=== PATIENT | female | born 1980 | race Caucasian/White ===

== ENCOUNTER 2020-08-05 10:59 | Observation (INO) | payer MEDICAID, SELFPAY ==
[2020-08-05 11:10] VITALS: BP 149/85; PULSE 91; RESP 22; TEMP 36; O2SAT 99
[2020-08-05 11:33] LABS: Bilirubin Negative (Negative); Blood Trace-intact (Negative); Clarity Clear (Clear); Glucose Negative (Negative); Ketones Negative (Negative); Leukocyte Esterase Negative (Negative); Nitrite Negative (Negative); Urobilinogen 0.2 EU/dL (Up TO 0.2)
[2020-08-05 11:41] LABS: Abs Immature Grans 0.06 10^3/uL (0.0-0.06); Absolute Basophil Count 0.03 10^3/uL (0.0-0.2); Absolute Eosinophil Count 0.06 10^3/uL (0.0-0.7); Absolute Lymphocyte Count 1.19 10^3/uL (1.2-3.4); Absolute Neutrophil Count 6.67 10^3/uL (1.2-6.7); Basophils % 0.3; Eosinophils % 0.7; HCT 41.8 % (36.0-46.0); HGB 13.6 g/dL (11.2-15.7); Immature Grans % 0.7; Lymphocytes % 13.7; MCH 28.8 pg (27.0-33.0); MCHC 32.5 % (32.0-36.0); MCV 88.6 fL (80-95); MPV 9.6 fL (8.0-11.0); Neutrophils % 76.6; Nucleated RBC 0 %; Platelet Count 347 10^3/uL (130-400); RBC 4.72 10^6/uL (3.93-5.22); RDW 11.9 % (11.7-14.6); RDW-SD 38.6 fL; WBC 8.71 10^3/uL (4.4-10.8)
[2020-08-05 11:42] LABS: RBC 0-2 HPF (0-2); WBC Negative HPF (0-5)
[2020-08-05 11:43] LABS: Bacteria Few HPF (Negative); C & S Indicated? No/Sq. Contamination; Casts Negative LPF (Negative); Crystals Negative HPF (Negative); Epithelial Cells Moderate HPF (Negative); Mucus Negative (Negative)
[2020-08-05 11:47] LABS: *AMPHETAMINES SCREEN URINE Negative (Negative); *BARBITURATES SCREEN URINE Negative (Negative); *BENZODIAZEPINES SCREEN URINE Negative (Negative); Cannabinoids THC Negative (Negative); Cocaine Screen,Urine Negative (Negative); METHADONE URINE SCREEN Negative (Negative); OPIATES URINE SCREEN Negative (Negative)
[2020-08-05 11:51] LABS: Tricyclic Antidepressants Negative (Negative)
--- NOTE | 2020-08-05 11:51 | CMSP_ITS ---
- If Service Date Differs Date of service: 08/05/20 Time of Service: 11:52 Care Management Safety Plan Status: Voluntary VOLUNTARY FOR INPATIENT PSYCHIATRIC STABILIZATION. Patient is appropriate in all interactions since arriving at [facility]; Pt has demonstrated appropriate coping and communication skills, has articulated his or her needs and concerns and is fully engaged during staff interactions. Lisa reports ongoing unmanageable panic episodes that have been increasing in frequency. She shares that her PCP has been attempting to adjust medications to support her, but the medications just make her sleep. She had an panic attack on the way to a scheduled appointment today and came directly to the [facility] ED, though she resides in the [place] area. Ewa RN reports Lisa has been completely appropriate in interaction and she has permitted her to keep her cellphone to support communication with her family; primarily fiance and sister are noted as support people at this time. Safety plan has been established with patient, and care team, to adhere to patient goals, identify restrictions based on behavioral status, address nutrition, and determine allowed personal belongings, tools for hygiene and personal care. Determine level of activity including ambulation, level of supervision, visitors, and determine privileges based on behaviors and level of engagement by pt. SAFETY PLAN: 1. Will remain on suicide precautions. In Paper Clothes 2. Will remain in room under direct supervision of one-on-one staff at all times provided by C[employer]; NIRALI, TAPING MACHINE OPERATOR quarantine inspector. 3. May have paper cups, plates, finger foods as well as a cardboard spoon with which to eat meals. 4. Follow [facility] Management of the Admitted Behavioral Health Patient policy. 5. Comfort bath system as well as shower permitted at RN discretion. 6. Personal belongings limited to patient's own cell phone at this time. 7. Visitors-No visitors at this time 8. Activities: permitted soft activity cart items at RN discretion. Permitted television and remote, as well as music tablet. 9. Bathroom privileges with escort in ED, available in room without limitation in M/S transition room. 10. Phone: permitted own cell phone at this time; per RN discretion. 11. Due to VOLUNTARY status, if patient wishes to leave [facility], staff will contact [facility] Crisis Screener ([phone]) and On-Call Drilling Superintendent ([phone]) as soon as possible. In the event of elopement, notify [facility] Police ([phone]). Patient is currently voluntarily at [facility] and seeking inpatient admission when a bed becomes available. [facility] Frontline Coil Spring Assembler will continue seeking placement. Please contact the Flight Dispatcher Drilling Superintendent ([phone]) and [facility] Coil Spring Assembler ([phone]) for any needed changes in the Safety Plan. Safety plan has been provided to interdepartmental care team.
[2020-08-05 12:02] LABS: ALT 26 U/L (14-59); AST 20 U/L (15-37); Albumin 3.9 g/dL (3.4-5.0); Alkaline Phosphatase 53 U/L (46-116); Anion Gap 9.9 mmol/L (3-11); BUN 12 mg/dL (7-18); Bilirubin, Total 0.4 mg/dL (0.2-1.0); CO2 28.1 mmol/L (21.0-32.0); CREATININE 0.9 mg/dL (0.55-1.02); Chloride 104 mmol/L (98-107); Glucose 96 mg/dL (74-106); Potassium 3.8 mmol/L (3.5-5.1); Sodium 142 mmol/L (136-145); TSH 1.07 uIU/mL (0.36-3.74); Total Protein 7.9 g/dL (6.4-8.2)
[2020-08-05 12:13] LABS: ETHANOL BLOOD < 3.0 mg/dL (<3)
--- NOTE | 2020-08-05 12:45 | PDOC.MHCN ---
Date of service: 08/05/20 Time of Service: 12:54 Mental Health Crisis Note Presenting Issue How did you arrive at the ED and why did you come: Patient experienced a panic attack on the way to an appointment and brought herself in to the ED. She is depressed, anxious and feeling suidical. She is worried that she will imulsively hurt herself and is feeling out of control. Precipitating Factors Patient experienced an sudden upsurge of panic last Thursday. She has been undergoing medication change and is feeling out of control. She is having suicidal thoughts and is depressed and abxious. She wishes to seek inpatient care for help in stabilizing her symptoms. Disposition BEHAVIOR: She is cooperative and appropriate. EYE CONTACT: This is a zoom interview and she keeps eye contact on the screen MOOD: her mood is depressed and anxious AFFECT: She is crying APPETITE: Noted that she hasn't eaten much since last Thursday. SLEEP(trouble falling/staying asleep: Unable to fall asleep easily or stay asleep. Plan Patient kaya remain in hospital at [facility] while placement is sought. The [facility] tobacco cloth reclaimer will call hospitals and oversee faxing of information to the hospitals. Signature Clinician's Name/Title: Eleni Hunter, [facility] Emergency Services Clinician
[2020-08-05] MEDS: Ibuprofen 800 MG TAB PO (13:36)
[2020-08-05] MEDS: LORazepam 1 MG TAB PO (13:36)
[2020-08-05 13:44] LABS: Source Nasal/Nares
--- NOTE | 2020-08-05 13:50 | ED.GENADUL_ITS ---
Discharge Plan Disposition Patient Disposition: [facility] INPATIENT Condition: Serious Discharge Details Chief Complaint: PsychEval Clinical Impression: Suicidal ideation, Depression Primary Care Provider: Kendra Jauregui ED Provider: Remi Ron Home Meds and New Rx's Prescriptions: No Action paroxetine HCl [Paxil] 10 mg Tablet 10 mg PO DAILY RF: 0 lorazepam 0.5 mg Tablet 0.5 mg PO BID PRNRF: 0 Medical Decision Making 39-year-old female presenting for ongoing anxiety and depression now with increasing depression, suicidal and homicidal thoughts. There have been multiple medication changes over the past couple of months. She denies any medical complaints at this time. Denies recent illness or trauma. She did not do anything today to harm herself. I have ordered a CPSO, mental health evaluation, care plan, and will obtain screening laboratory values for psychiatric voluntary placement. Laboratory values are unremarkable for obvious emergent process. Mental health evaluation completed by Eleni. Will begin to seek voluntary placement. Patient complains of a mild headache from crying and ongoing anxiety. Given 800 mg p.o. Motrin and 1 g p.o. Ativan I was updated by Eleni that placement will not take place until tomorrow at the earliest. Given that, I will reach out to our hospitalist team to discuss admission. Case discussed with Dr. Street, agreeable to admitting the patient while inpatient voluntary psych placement is found. Lab Data Lab results reviewed: Yes I reviewed the patient's lab results. Labs: Laboratory Tests Range/Units 08/05/20 08/05/20 08/05/20 11:07 11:07 11:36 WBC (4.4-10.8) 10^3/uL RBC (3.93-5.22) 10^6/uL Hgb (11.2-15.7) g/dL Hct (36.0-46.0) % MCV (80-95) fL MCH (27.0-33.0) pg MCHC (32.0-36.0) % RDW (11.7-14.6) % Plt Count (130-400) 10^3/uL MPV (8.0-11.0) fL Immature Gran % Neutrophils % Lymphocytes % Monocytes % Eosinophils % Basophils % Nucleated RBC % % Absolute Neutrophils (1.2-6.7) 10^3/uL Absolute Lymphocytes (1.2-3.4) 10^3/uL Absolute Monocytes (0.1-0.8) 10^3/uL Absolute Eosinophils (0.0-0.7) 10^3/uL Absolute Basophils (0.0-0.2) 10^3/uL Sodium (136-145) mmol/L 142 Potassium (3.5-5.1) mmol/L 3.8 Chloride (98-107) mmol/L 104 Carbon Dioxide (21.0-32.0) mmol/L 28.1 Anion Gap (3-11) mmol/L 9.9 BUN (7-18) mg/dL 12 Creatinine (0.55-1.02) mg/dL 0.9 Estimated GFR/1.73 m2 (mL/min/1.73m2) >= 60.00 Glucose (74-106) mg/dL 96 Calcium (8.5-10.1) mg/dL 9.0 Total Bilirubin (0.2-1.0) mg/dL 0.4 AST (15-37) U/L 20 ALT (14-59) U/L 26 Alkaline Phosphatase (46-116) U/L 53 Total Protein (6.4-8.2) g/dL 7.9 Albumin (3.4-5.0) g/dL 3.9 TSH (0.36-3.74) uIU/mL 1.07 Urine Color (Yellow) Yellow Urine Clarity (Clear) Clear Urine pH (5-8) 6.0 Ur Specific [place] (1.005-1.025) 1.010 Urine Protein (Negative) mg/dL Negative Urine Ketones (Negative) mg/dL Negative Urine Blood (Negative) Trace-intact H Urine Nitrite (Negative) Negative Urine Bilirubin (Negative) Negative Urine Urobilinogen (Up TO 0.2) EU/dL 0.2 Ur Leukocyte Esterase (Negative) Negative Urine RBC (0-2) HPF 0-2 Urine WBC (0-5) HPF Negative Ur Epithelial Cells (Negative) HPF Moderate Urine Crystals (Negative) HPF Negative Urine Bacteria (Negative) HPF Few Urine Casts (Negative) LPF Negative Urine Mucus (Negative) Negative Ur Culture Indicated? No/sq. contamination Urine Glucose (Negative) mg/dL Negative Urine Opiates Screen (Negative) Negative Urine Methadone Screen (Negative) Negative Ur Barbiturates Screen (Negative) Negative Ur Tricyclics Screen (Negative) Negative Ur Amphetamines Screen (Negative) Negative U Benzodiazepines Scrn (Negative) Negative Urine Cocaine Screen (Negative) Negative Ur THC Screen (Negative) Negative Ethyl Alcohol (<3) mg/dL < 3.0 COVID-19 Source Range/Units 08/05/20 08/05/20 11:36 13:40 WBC (4.4-10.8) 10^3/uL 8.71 RBC (3.93-5.22) 10^6/uL 4.72 Hgb (11.2-15.7) g/dL 13.6 Hct (36.0-46.0) % 41.8 MCV (80-95) fL 88.6 MCH (27.0-33.0) pg 28.8 MCHC (32.0-36.0) % 32.5 RDW (11.7-14.6) % 11.9 Plt Count (130-400) 10^3/uL 347 MPV (8.0-11.0) fL 9.6 Immature Gran % 0.7 Neutrophils % 76.6 Lymphocytes % 13.7 Monocytes % 8.0 Eosinophils % 0.7 Basophils % 0.3 Nucleated RBC % % 0 Absolute Neutrophils (1.2-6.7) 10^3/uL 6.67 Absolute Lymphocytes (1.2-3.4) 10^3/uL 1.19 L Absolute Monocytes (0.1-0.8) 10^3/uL 0.70 Absolute Eosinophils (0.0-0.7) 10^3/uL 0.06 Absolute Basophils (0.0-0.2) 10^3/uL 0.03 Sodium (136-145) mmol/L Potassium (3.5-5.1) mmol/L Chloride (98-107) mmol/L Carbon Dioxide (21.0-32.0) mmol/L Anion Gap (3-11) mmol/L BUN (7-18) mg/dL Creatinine (0.55-1.02) mg/dL Estimated GFR/1.73 m2 (mL/min/1.73m2) Glucose (74-106) mg/dL Calcium (8.5-10.1) mg/dL Total Bilirubin (0.2-1.0) mg/dL AST (15-37) U/L ALT (14-59) U/L Alkaline Phosphatase (46-116) U/L Total Protein (6.4-8.2) g/dL Albumin (3.4-5.0) g/dL TSH (0.36-3.74) uIU/mL Urine Color (Yellow) Urine Clarity (Clear) Urine pH (5-8) Ur Specific [place] (1.005-1.025) Urine Protein (Negative) mg/dL Urine Ketones (Negative) mg/dL Urine Blood (Negative) Urine Nitrite (Negative) Urine Bilirubin (Negative) Urine Urobilinogen (Up TO 0.2) EU/dL Ur Leukocyte Esterase (Negative) Urine RBC (0-2) HPF Urine WBC (0-5) HPF Ur Epithelial Cells (Negative) HPF Urine Crystals (Negative) HPF Urine Bacteria (Negative) HPF Urine Casts (Negative) LPF Urine Mucus (Negative) Ur Culture Indicated? Urine Glucose (Negative) mg/dL Urine Opiates Screen (Negative) Urine Methadone Screen (Negative) Ur Barbiturates Screen (Negative) Ur Tricyclics Screen (Negative) Ur Amphetamines Screen (Negative) U Benzodiazepines Scrn (Negative) Urine Cocaine Screen (Negative) Ur THC Screen (Negative) Ethyl Alcohol (<3) mg/dL COVID-19 Source Nasal/nares HPI General Mode of arrival: ambulatory . Date/Time Provider Initiated Documentation: 08/05/20 11:21 . Limitations to Documentation: no limitations . Information obtained by: patient . HPI Narrative: This is a 39-year-old female, past medical history of anxiety and depression, presenting to the ER today for increasing anxiety and depression now with suicidal ideation. She states that over the past 2 months there have been multiple changes with her medications, recently placed back on Paxil because Paxil worked very well for her previously. She denies any new obvious stressors or triggers in her life. She states that she has thoughts of cutting herself or shooting herself with a gun. She denies doing anything today to harm herself or any previous attempts. She states that she also has a vague thoughts of stabbing someone else, not anyone in particular. She denies recent illness or trauma. No medical concerns or complaints at this time. She has never been hospitalized for psychiatric reasons however today is seeking voluntary placement. Related Data Home Medications Medication Instructions Recorded Confirmed lorazepam 0.5 mg PO BID PRN 08/05/20 08/05/20 paroxetine HCl [Paxil] 10 mg PO DAILY 08/05/20 08/05/20 Allergies Allergy/AdvReac Type Severity Reaction Status Date / Time Sulfa (Sulfonamide Allergy Skin Rash Unverified 08/05/20 11:14 Antibiotics) General Stated Complaint: PsychEval PUNEET: 2 Review of Systems Constitutional Constitutional: Denies fatigue, Denies fever(s) and Denies headache(s) ENT Ears, Nose, Mouth, and Throat: Denies headache(s) Cardiovascular Cardiovascular: Denies chest pain and Denies dyspnea Respiratory Respiratory: Denies cough and Denies dyspnea Gastrointestinal Gastrointestinal: Denies abdominal pain, Denies nausea and Denies vomiting Genitourinary Genitourinary: Denies dysuria Musculoskeletal Musculoskeletal: Denies back pain Integumentary/Breasts Skin/Breast: Denies rash Neurologic Neurologic: Denies headache(s) Psychiatric Psychiatric: Reports anxiety, Reports depression, Reports homicidal ideation and Reports suicidal ideation Endocrine Endocrine: Denies fatigue [facility] Medical History Anxiety Depression Surgical History Status post left foot surgery Social History Smoking/Tobacco Use Status: Never Smoking risk assessment performed?: Yes Alcohol Intake: current Alcohol Intake frequency: a few times a month Drug use: Occasionally Substance use type: marijuana Exam Const General: cooperative, healthy appearing, comfortable, no acute distress and anxious (Tearful) Orientation: alert, awake and oriented x3 HENWV Head: normal to inspection, normocephalic and atraumatic Eyes General: appearance normal, both eyes and all related structures Conjunctivae: conjunctivae normal Neck Neck: normal visual inspection, full ROM, trachea midline and supple Resp Effort & Inspection: normal respiratory effort and able to speak in complete sentences Auscultation: clear to auscultation bilaterally Cardio Rate: regular rate Rhythm: regular rhythm GI Palpation: soft and nontender Back/Spine/Pelvis Back: No back tenderness Skin General skin exam: no rashes or lesions noted Neuro General: patient alert, patient awake, patient oriented x3, moves all extremities and no focal motor deficits Cognition: normal cognition Speech: speech normal Gait: normal gait Motor: muscle tone normal throughout Sensory Exam: no sensory deficits noted Extrem General: normal to inspection and full ROM Psych Appearance: grossly normal Mental Status: mental status grossly normal Speech and Movement: speech and movement normal Mood: anxious mood Affect: sad Attitude: cooperative Thought Process: normal Thought Content: suicidality Insight: insight good Judgment: judgment good Course Vital Signs Vital signs: Vital Signs Temperature 36 C L 08/05/20 11:10 Pulse 91 H 08/05/20 11:10 Respiratory Rate 22 08/05/20 11:10 Blood Pressure 149/85 H 08/05/20 11:10 Pulse Oximetry 99 08/05/20 11:10 Temperature 36 C L 08/05/20 11:10 Temperature Source Skin 08/05/20 11:10 Pulse 91 H 08/05/20 11:10 Respiratory Rate 22 08/05/20 11:10 Respiratory Effort Non-Labored 08/05/20 11:18 Blood Pressure 149/85 H 08/05/20 11:10 Blood Pressure Position Sitting 08/05/20 11:10 Pulse Oximetry 99 08/05/20 11:10 Oxygen Delivery Method Room Air 08/05/20 11:10 Oxygen Flow Rate 0 08/05/20 11:10 Pain Level 0 08/05/20 11:10 Lab/Test Results Lab/Test Results: Laboratory Tests Range/Units 08/05/20 08/05/20 08/05/20 11:07 11:07 11:36 WBC (4.4-10.8) 10^3/uL RBC (3.93-5.22) 10^6/uL Hgb (11.2-15.7) g/dL Hct (36.0-46.0) % MCV (80-95) fL MCH (27.0-33.0) pg MCHC (32.0-36.0) % RDW (11.7-14.6) % Plt Count (130-400) 10^3/uL MPV (8.0-11.0) fL Immature Gran % Neutrophils % Lymphocytes % Monocytes % Eosinophils % Basophils % Nucleated RBC % % Absolute Neutrophils (1.2-6.7) 10^3/uL Absolute Lymphocytes (1.2-3.4) 10^3/uL Absolute Monocytes (0.1-0.8) 10^3/uL Absolute Eosinophils (0.0-0.7) 10^3/uL Absolute Basophils (0.0-0.2) 10^3/uL Sodium (136-145) mmol/L 142 Potassium (3.5-5.1) mmol/L 3.8 Chloride (98-107) mmol/L 104 Carbon Dioxide (21.0-32.0) mmol/L 28.1 Anion Gap (3-11) mmol/L 9.9 BUN (7-18) mg/dL 12 Creatinine (0.55-1.02) mg/dL 0.9 Estimated GFR/1.73 m2 (mL/min/1.73m2) >= 60.00 Glucose (74-106) mg/dL 96 Calcium (8.5-10.1) mg/dL 9.0 Total Bilirubin (0.2-1.0) mg/dL 0.4 AST (15-37) U/L 20 ALT (14-59) U/L 26 Alkaline Phosphatase (46-116) U/L 53 Total Protein (6.4-8.2) g/dL 7.9 Albumin (3.4-5.0) g/dL 3.9 TSH (0.36-3.74) uIU/mL 1.07 Urine Color (Yellow) Yellow Urine Clarity (Clear) Clear Urine pH (5-8) 6.0 Ur Specific [place] (1.005-1.025) 1.010 Urine Protein (Negative) mg/dL Negative Urine Ketones (Negative) mg/dL Negative Urine Blood (Negative) Trace-intact H Urine Nitrite (Negative) Negative Urine Bilirubin (Negative) Negative Urine Urobilinogen (Up TO 0.2) EU/dL 0.2 Ur Leukocyte Esterase (Negative) Negative Urine RBC (0-2) HPF 0-2 Urine WBC (0-5) HPF Negative Ur Epithelial Cells (Negative) HPF Moderate Urine Crystals (Negative) HPF Negative Urine Bacteria (Negative) HPF Few Urine Casts (Negative) LPF Negative Urine Mucus (Negative) Negative Ur Culture Indicated? No/sq. contamination Urine Glucose (Negative) mg/dL Negative Urine Opiates Screen (Negative) Negative Urine Methadone Screen (Negative) Negative Ur Barbiturates Screen (Negative) Negative Ur Tricyclics Screen (Negative) Negative Ur Amphetamines Screen (Negative) Negative U Benzodiazepines Scrn (Negative) Negative Urine Cocaine Screen (Negative) Negative Ur THC Screen (Negative) Negative Ethyl Alcohol (<3) mg/dL < 3.0 COVID-19 Source Range/Units 08/05/20 08/05/20 11:36 13:40 WBC (4.4-10.8) 10^3/uL 8.71 RBC (3.93-5.22) 10^6/uL 4.72 Hgb (11.2-15.7) g/dL 13.6 Hct (36.0-46.0) % 41.8 MCV (80-95) fL 88.6 MCH (27.0-33.0) pg 28.8 MCHC (32.0-36.0) % 32.5 RDW (11.7-14.6) % 11.9 Plt Count (130-400) 10^3/uL 347 MPV (8.0-11.0) fL 9.6 Immature Gran % 0.7 Neutrophils % 76.6 Lymphocytes % 13.7 Monocytes % 8.0 Eosinophils % 0.7 Basophils % 0.3 Nucleated RBC % % 0 Absolute Neutrophils (1.2-6.7) 10^3/uL 6.67 Absolute Lymphocytes (1.2-3.4) 10^3/uL 1.19 L Absolute Monocytes (0.1-0.8) 10^3/uL 0.70 Absolute Eosinophils (0.0-0.7) 10^3/uL 0.06 Absolute Basophils (0.0-0.2) 10^3/uL 0.03 Sodium (136-145) mmol/L Potassium (3.5-5.1) mmol/L Chloride (98-107) mmol/L Carbon Dioxide (21.0-32.0) mmol/L Anion Gap (3-11) mmol/L BUN (7-18) mg/dL Creatinine (0.55-1.02) mg/dL Estimated GFR/1.73 m2 (mL/min/1.73m2) Glucose (74-106) mg/dL Calcium (8.5-10.1) mg/dL Total Bilirubin (0.2-1.0) mg/dL AST (15-37) U/L ALT (14-59) U/L Alkaline Phosphatase (46-116) U/L Total Protein (6.4-8.2) g/dL Albumin (3.4-5.0) g/dL TSH (0.36-3.74) uIU/mL Urine Color (Yellow) Urine Clarity (Clear) Urine pH (5-8) Ur Specific [place] (1.005-1.025) Urine Protein (Negative) mg/dL Urine Ketones (Negative) mg/dL Urine Blood (Negative) Urine Nitrite (Negative) Urine Bilirubin (Negative) Urine Urobilinogen (Up TO 0.2) EU/dL Ur Leukocyte Esterase (Negative) Urine RBC (0-2) HPF Urine WBC (0-5) HPF Ur Epithelial Cells (Negative) HPF Urine Crystals (Negative) HPF Urine Bacteria (Negative) HPF Urine Casts (Negative) LPF Urine Mucus (Negative) Ur Culture Indicated? Urine Glucose (Negative) mg/dL Urine Opiates Screen (Negative) Urine Methadone Screen (Negative) Ur Barbiturates Screen (Negative) Ur Tricyclics Screen (Negative) Ur Amphetamines Screen (Negative) U Benzodiazepines Scrn (Negative) Urine Cocaine Screen (Negative) Ur THC Screen (Negative) Ethyl Alcohol (<3) mg/dL COVID-19 Source Nasal/nares POC- Test(urine) Negative
[2020-08-05 15:37] VITALS: BP 114/80; PULSE 92; RESP 18; TEMP 36.8; O2SAT 98
--- NOTE | 2020-08-05 15:46 | W.PM.HP.N ---
Date of service: 08/05/20 Time of Service: 15:00 Assessment and Plan Assessment and plan (1) Suicidal ideation: Start date: 08/05/20 Start time: 16:21 Status: Acute Assessment and plan: Due to increased depression multiple med changes likely contributing factor. She has had active plans but no actions. Will continue Paxil Valium 2 mg BID sched with 5 mg PRN CPSO 1:1 Medically cleared. (2) Depression: Start date: 08/05/20 Start time: 16:23 Status: Chronic Assessment and plan: as above both MH and CM working on Bed placement above case discussed with Dr. Street History of Present Illness History of Present Illness Chief Complaint: Psych Narrative: 39 y.o female with PMH of anxiety and depression presents to [facility] ED for worsening anxiety and depression. Over the last couple of months patient express multiple medication changes being taken off her paxil especially since then having worsening anxiety and depression. She is having thoughts of harming herself wanting to slight her wrist and shot herself. evaluated her and deemed her voluntary. Labs in ED unremarkable. She has been asked to be admitted for further management until bed placement. She is being admitted to a transition unit. Review of Systems All systems reviewed & are unremarkable except as noted in HPI and below PFSH Medical History Anxiety Depression Surgical History Status post left foot surgery Social History Smoking/Tobacco Use Status: Never Smoking risk assessment performed?: Yes Alcohol Intake: current Alcohol Intake frequency: a few times a month Drug use: Occasionally Substance use type: marijuana Meds Home Medications and Allergies Allergies Allergy/AdvReac Type Severity Reaction Status Date / Time Sulfa (Sulfonamide Allergy Skin Rash Unverified 08/05/20 11:14 Antibiotics) Home Medications Medication Instructions Recorded Confirmed Type lorazepam 0.5 mg PO BID PRN 08/05/20 08/05/20 History paroxetine HCl [Paxil] 10 mg PO DAILY 08/05/20 08/05/20 History Exam Narrative Exam Narrative: Cont: middle aged anxious female AAOx 3 with thoughts of SI General: cooperative, healthy appearing, comfortable, no acute distress Eyes:PERRLA, EOMI Neck: normal visual inspection, full ROM, trachea midline and supple Resp: LSC to all tapia, no wheezing, rhonichi Cardio: RRR without ectopic beats GI: soft non tender bsx4 Palpation: soft and nontender Back: No back tenderness Skin: no rashes or leasions Extrem: no clubbing cyanosis, edema Psych Appearance: grossly normal Mental Status: mental status grossly normal Speech and Movement: speech and movement normal Mood: anxious mood Affect: sad Attitude: cooperative Thought Content: suicidality Insight: insight poor Judgment: judgment poor Results Labs Result diagrams: 08/05/20 11:36 08/05/20 11:36 Labs: Laboratory Results - last 24 hr 08/05/20 08/05/20 08/05/20 11:07 11:07 11:36 WBC RBC Hgb Hct MCV MCH MCHC RDW Plt Count MPV Immature Gran % Neutrophils % Lymphocytes % Monocytes % Eosinophils % Basophils % Nucleated RBC % Absolute Neutrophils Absolute Lymphocytes Absolute Monocytes Absolute Eosinophils Absolute Basophils Sodium 142 Potassium 3.8 Chloride 104 Carbon Dioxide 28.1 Anion Gap 9.9 BUN 12 Creatinine 0.9 Estimated GFR/1.73 m2 >= 60.00 Glucose 96 Calcium 9.0 Total Bilirubin 0.4 AST 20 ALT 26 Alkaline Phosphatase 53 Total Protein 7.9 Albumin 3.9 TSH 1.07 Urine Color Yellow Urine Clarity Clear Urine pH 6.0 Ur Specific [place] 1.010 Urine Protein Negative Urine Ketones Negative Urine Blood Trace-intact H Urine Nitrite Negative Urine Bilirubin Negative Urine Urobilinogen 0.2 Ur Leukocyte Esterase Negative Urine RBC 0-2 Urine WBC Negative Ur Epithelial Cells Moderate Urine Crystals Negative Urine Bacteria Few Urine Casts Negative Urine Mucus Negative Ur Culture Indicated? No/sq. contamination Urine Glucose Negative Urine Opiates Screen Negative Urine Methadone Screen Negative Ur Barbiturates Screen Negative Ur Tricyclics Screen Negative Ur Amphetamines Screen Negative U Benzodiazepines Scrn Negative Urine Cocaine Screen Negative Ur THC Screen Negative Ethyl Alcohol < 3.0 COVID-19 Source 08/05/20 08/05/20 11:36 13:40 WBC 8.71 RBC 4.72 Hgb 13.6 Hct 41.8 MCV 88.6 MCH 28.8 MCHC 32.5 RDW 11.9 Plt Count 347 MPV 9.6 Immature Gran % 0.7 Neutrophils % 76.6 Lymphocytes % 13.7 Monocytes % 8.0 Eosinophils % 0.7 Basophils % 0.3 Nucleated RBC % 0 Absolute Neutrophils 6.67 Absolute Lymphocytes 1.19 L Absolute Monocytes 0.70 Absolute Eosinophils 0.06 Absolute Basophils 0.03 Sodium Potassium Chloride Carbon Dioxide Anion Gap BUN Creatinine Estimated GFR/1.73 m2 Glucose Calcium Total Bilirubin AST ALT Alkaline Phosphatase Total Protein Albumin TSH Urine Color Urine Clarity Urine pH Ur Specific [place] Urine Protein Urine Ketones Urine Blood Urine Nitrite Urine Bilirubin Urine Urobilinogen Ur Leukocyte Esterase Urine RBC Urine WBC Ur Epithelial Cells Urine Crystals Urine Bacteria Urine Casts Urine Mucus Ur Culture Indicated? Urine Glucose Urine Opiates Screen Urine Methadone Screen Ur Barbiturates Screen Ur Tricyclics Screen Ur Amphetamines Screen U Benzodiazepines Scrn Urine Cocaine Screen Ur THC Screen Ethyl Alcohol COVID-19 Source Nasal/nares Last Vital Signs Temp 36.8 C 08/05/20 15:37 Pulse 92 H 08/05/20 15:37 Resp 18 08/05/20 15:37 BP 114/80 08/05/20 15:37 Pulse Ox 98 08/05/20 15:37 COVID-19 Screening Have you, or household traveled for leisure in last 14 days?: No Had IN PERSON contact w/suspected or confirmed C-19 person: No
[2020-08-05 16:30] LABS: COVID-19 PCR Negative (Negative)
--- NOTE | 2020-08-05 19:16 | W.PM.DS.N ---
Date of service: 08/05/20 Time of Service: 19:25 DS: Diagnosis Discharge Diagnosis (1) Suicidal ideation: Status: Acute (2) Depression: Status: Chronic Discharge Plan Disposition Patient Disposition: [facility] Condition: Serious Discharge Details Admit Date/Time: 08/05/20 14:34 Admit Provider: Kaiser Street Attending Provider: Kaiser Street Primary Care Provider: Kendra Jauregui Hospital Course Hospital Course: Patient admitted this afternoon with suicidal ideation and worsening depression felt to be due at least in part to coming of Paxil. This was to be resumed on the evening of admission, and she was admitted voluntarily pending transfer to psychiatric facility. Shortly after admission we were notified that patient had been accepted at [facility] under care of a Dr. Thompson, with transfer planned for the morning of the . Home Meds and New Rx's Prescriptions: No Action paroxetine HCl [Paxil] 10 mg Tablet 10 mg PO DAILY RF: 0 lorazepam 0.5 mg Tablet 0.5 mg PO BID PRNRF: 0 Discharge Instructions Activity:: Activity as Tolerated Equipment/Supplies:: No Equipment Needed Diet:: As Tolerated DS: Summary Time Spent with Patient providing and/or coordinating discharge services: Less than 30 minutes DS: Data Vitals/I&O Vitals and I&O: Vital Signs Temperature 36.8 C 08/05/20 15:37 Temperature Source Temporal Artery Scan 08/05/20 15:37 Pulse 92 H 08/05/20 15:37 Pulse Rhythm Regular 08/05/20 17:23 Respiratory Rate 18 08/05/20 15:37 Respiratory Effort Non-Labored 08/05/20 17:23 Respiratory Depth Normal 08/05/20 17:23 Respiratory Pattern Normal 08/05/20 17:23 Blood Pressure 114/80 08/05/20 15:37 Blood Pressure Position Sitting 08/05/20 11:10 Pulse Oximetry 98 08/05/20 15:37 Oxygen Delivery Method Room Air 08/05/20 15:37 Oxygen Flow Rate 0 08/05/20 15:37 Pain Level 0 08/05/20 15:37 Intake & Output 08/04/20 08/05/20 08/05/20 23:59 11:59 23:59 Intake Total 230 / 230 Balance 230 / 230 Weight 77.111 kg Intake: Oral 230 / 230 Data Completed and Pending Labs on day of discharge: Labs from last 24 hours 08/05/20 08/05/20 08/05/20 13:40 11:36 11:36 WBC 8.71 RBC 4.72 Hgb 13.6 Hct 41.8 MCV 88.6 MCH 28.8 MCHC 32.5 RDW 11.9 Plt Count 347 MPV 9.6 Immature Gran % 0.7 Neutrophils % 76.6 Lymphocytes % 13.7 Monocytes % 8.0 Eosinophils % 0.7 Basophils % 0.3 Nucleated RBC % 0 Absolute Neutrophils 6.67 Absolute Lymphocytes 1.19 L Absolute Monocytes 0.70 Absolute Eosinophils 0.06 Absolute Basophils 0.03 Sodium 142 Potassium 3.8 Chloride 104 Carbon Dioxide 28.1 Anion Gap 9.9 BUN 12 Creatinine 0.9 Estimated GFR/1.73 m2 >= 60.00 Glucose 96 Calcium 9.0 Total Bilirubin 0.4 AST 20 ALT 26 Alkaline Phosphatase 53 Total Protein 7.9 Albumin 3.9 TSH 1.07 Urine Color Urine Clarity Urine pH Ur Specific [place] Urine Protein Urine Ketones Urine Blood Urine Nitrite Urine Bilirubin Urine Urobilinogen Ur Leukocyte Esterase Urine RBC Urine WBC Ur Epithelial Cells Urine Crystals Urine Bacteria Urine Casts Urine Mucus Ur Culture Indicated? Urine Glucose Urine Opiates Screen Urine Methadone Screen Ur Barbiturates Screen Ur Tricyclics Screen Ur Amphetamines Screen U Benzodiazepines Scrn Urine Cocaine Screen Ur THC Screen Ethyl Alcohol < 3.0 COVID-19 Source Nasal/nares SARS-CoV-2 (PCR) Negative 08/05/20 08/05/20 11:07 11:07 WBC RBC Hgb Hct MCV MCH MCHC RDW Plt Count MPV Immature Gran % Neutrophils % Lymphocytes % Monocytes % Eosinophils % Basophils % Nucleated RBC % Absolute Neutrophils Absolute Lymphocytes Absolute Monocytes Absolute Eosinophils Absolute Basophils Sodium Potassium Chloride Carbon Dioxide Anion Gap BUN Creatinine Estimated GFR/1.73 m2 Glucose Calcium Total Bilirubin AST ALT Alkaline Phosphatase Total Protein Albumin TSH Urine Color Yellow Urine Clarity Clear Urine pH 6.0 Ur Specific [place] 1.010 Urine Protein Negative Urine Ketones Negative Urine Blood Trace-intact H Urine Nitrite Negative Urine Bilirubin Negative Urine Urobilinogen 0.2 Ur Leukocyte Esterase Negative Urine RBC 0-2 Urine WBC Negative Ur Epithelial Cells Moderate Urine Crystals Negative Urine Bacteria Few Urine Casts Negative Urine Mucus Negative Ur Culture Indicated? No/sq. contamination Urine Glucose Negative Urine Opiates Screen Negative Urine Methadone Screen Negative Ur Barbiturates Screen Negative Ur Tricyclics Screen Negative Ur Amphetamines Screen Negative U Benzodiazepines Scrn Negative Urine Cocaine Screen Negative Ur THC Screen Negative Ethyl Alcohol COVID-19 Source SARS-CoV-2 (PCR) PFSH Medical History Anxiety Depression Surgical History Status post left foot surgery Social History Smoking/Tobacco Use Status: Never Smoking risk assessment performed?: Yes Alcohol Intake: current Alcohol Intake frequency: a few times a month Drug use: Occasionally Substance use type: marijuana
[2020-08-05] MEDS: PARoxetine 10 MG TAB PO (21:47)
[2020-08-05] MEDS: diazePAM 2 MG TAB PO (21:48)
[2020-08-06 06:59] VITALS: BP 111/70; PULSE 91; RESP 18; TEMP 37.1; O2SAT 100
[2020-08-06] MEDS: diazePAM 5 MG TAB PO (07:03)
--- NOTE | 2020-08-06 07:46 | PDOC.CMDIS ---
LACE Index Scoring Tool - Questions: Length of Stay (in days): 1 Acuity (Admit via E.D.?): Yes E.D. Visits: 1 - Answers: Total Score: 5 Risk of Readmission: Low Risk Care Management Discharge Reason for Hospitalization: Suicidal ideation and Panic disorder Discharge Plan: Lisa will discharge to [facility]. She will transport via [facility], coordinated by this comic book writer. Patient/Family Education Needs: Review discharge instructions, discuss Ask Me Three. Services Needed at Discharge: Psychiatric Facility ([place] ), Transportation ([facility] ) - MH Services (Omit if N/A) Current MH Services: [facility] (New intake for services.)
--- NOTE | 2020-08-06 07:49 | W.PM.DS.N ---
Date of service: 08/06/20 Time of Service: 07:50 DS: Diagnosis Discharge Diagnosis (1) Suicidal ideation: Status: Acute (2) Depression: Status: Chronic Discharge Plan Disposition Patient Disposition: [facility] Condition: Serious Discharge Details Reason For Visit: Suicial ideations Admit Date/Time: 08/05/20 14:34 Admit Provider: Kaiser Street Attending Provider: Kaiser Street Primary Care Provider: Kendra Jauregui Hospital Course Hospital Course: Patient admitted this afternoon with suicidal ideation and worsening depression felt to be due at least in part to coming of Paxil. This was to be resumed on the evening of admission, and she was admitted voluntarily pending transfer to psychiatric facility. Shortly after admission we were notified that patient had been accepted at [facility] under care of a Dr. Thompson, with transfer planned for the morning of the . Home Meds and New Rx's Prescriptions: Continued paroxetine HCl [Paxil] 10 mg Tablet 10 mg PO DAILY RF: 0 lorazepam 0.5 mg Tablet 0.5 mg PO BID PRNRF: 0 Discharge Instructions Stand Alone Forms: Nursing Discharge Form Activity:: Activity as Tolerated Equipment/Supplies:: No Equipment Needed Diet:: As Tolerated Discharge Orders Discharge Orders: Discharge Order (Routine); Ordered 08/06/20 Ordered By: Kaiser Street DS: Summary Time Spent with Patient providing and/or coordinating discharge services: Less than 30 minutes Status at Discharge Functional status at discharge: independent ambulation Overall status at discharge: patient is not back to baseline Mental Status: mental status grossly normal Speech and Movement: speech and movement normal Mood: anxious mood and dysthymic mood Affect: sad Exam Const General: cooperative and no acute distress Nutritional Appearance: overweight Eyes Sclera: sclerae normal Pupils: PERRL Resp Effort & Inspection: normal respiratory effort Auscultation: clear to auscultation bilaterally Skin General skin exam: no rashes or lesions noted Neuro General: patient alert and no focal motor deficits Cognition: normal cognition Speech: speech normal Psych Mental Status: mental status grossly normal Speech and Movement: speech and movement normal Mood: anxious mood and dysthymic mood Affect: sad Attitude: cooperative DS: Data Vitals/I&O Vitals and I&O: Vital Signs Temperature 37.1 C 08/06/20 06:59 Temperature Source Skin 08/06/20 06:59 Pulse 91 H 08/06/20 06:59 Pulse Rhythm Regular 08/05/20 21:40 Respiratory Rate 18 08/06/20 06:59 Respiratory Effort Non-Labored 08/05/20 21:40 Respiratory Depth Normal 08/05/20 21:40 Respiratory Pattern Normal 08/05/20 21:40 Blood Pressure 111/70 08/06/20 06:59 Blood Pressure Position Sitting 08/05/20 11:10 Pulse Oximetry 100 08/06/20 06:59 Oxygen Delivery Method Room Air 08/06/20 06:59 Oxygen Flow Rate 0 08/06/20 06:59 Pain Level 0 08/06/20 06:59 Intake & Output 08/05/20 08/05/20 08/06/20 11:59 23:59 11:59 Intake Total 230 / 230 Balance 230 / 230 Weight 77.111 kg Intake: Oral 230 / 230 Other: Urine Color Pale Straw Urine Appearance Clear Voiding Methods Toilet Toilet Data Completed and Pending Labs on day of discharge: Labs from last 24 hours 08/05/20 08/05/20 08/05/20 13:40 11:36 11:36 WBC 8.71 RBC 4.72 Hgb 13.6 Hct 41.8 MCV 88.6 MCH 28.8 MCHC 32.5 RDW 11.9 Plt Count 347 MPV 9.6 Immature Gran % 0.7 Neutrophils % 76.6 Lymphocytes % 13.7 Monocytes % 8.0 Eosinophils % 0.7 Basophils % 0.3 Nucleated RBC % 0 Absolute Neutrophils 6.67 Absolute Lymphocytes 1.19 L Absolute Monocytes 0.70 Absolute Eosinophils 0.06 Absolute Basophils 0.03 Sodium 142 Potassium 3.8 Chloride 104 Carbon Dioxide 28.1 Anion Gap 9.9 BUN 12 Creatinine 0.9 Estimated GFR/1.73 m2 >= 60.00 Glucose 96 Calcium 9.0 Total Bilirubin 0.4 AST 20 ALT 26 Alkaline Phosphatase 53 Total Protein 7.9 Albumin 3.9 TSH 1.07 Urine Color Urine Clarity Urine pH Ur Specific [place] Urine Protein Urine Ketones Urine Blood Urine Nitrite Urine Bilirubin Urine Urobilinogen Ur Leukocyte Esterase Urine RBC Urine WBC Ur Epithelial Cells Urine Crystals Urine Bacteria Urine Casts Urine Mucus Ur Culture Indicated? Urine Glucose Urine Opiates Screen Urine Methadone Screen Ur Barbiturates Screen Ur Tricyclics Screen Ur Amphetamines Screen U Benzodiazepines Scrn Urine Cocaine Screen Ur THC Screen Ethyl Alcohol < 3.0 COVID-19 Source Nasal/nares SARS-CoV-2 (PCR) Negative 08/05/20 08/05/20 11:07 11:07 WBC RBC Hgb Hct MCV MCH MCHC RDW Plt Count MPV Immature Gran % Neutrophils % Lymphocytes % Monocytes % Eosinophils % Basophils % Nucleated RBC % Absolute Neutrophils Absolute Lymphocytes Absolute Monocytes Absolute Eosinophils Absolute Basophils Sodium Potassium Chloride Carbon Dioxide Anion Gap BUN Creatinine Estimated GFR/1.73 m2 Glucose Calcium Total Bilirubin AST ALT Alkaline Phosphatase Total Protein Albumin TSH Urine Color Yellow Urine Clarity Clear Urine pH 6.0 Ur Specific [place] 1.010 Urine Protein Negative Urine Ketones Negative Urine Blood Trace-intact H Urine Nitrite Negative Urine Bilirubin Negative Urine Urobilinogen 0.2 Ur Leukocyte Esterase Negative Urine RBC 0-2 Urine WBC Negative Ur Epithelial Cells Moderate Urine Crystals Negative Urine Bacteria Few Urine Casts Negative Urine Mucus Negative Ur Culture Indicated? No/sq. contamination Urine Glucose Negative Urine Opiates Screen Negative Urine Methadone Screen Negative Ur Barbiturates Screen Negative Ur Tricyclics Screen Negative Ur Amphetamines Screen Negative U Benzodiazepines Scrn Negative Urine Cocaine Screen Negative Ur THC Screen Negative Ethyl Alcohol COVID-19 Source SARS-CoV-2 (PCR) PFSH Medical History Anxiety Depression Surgical History Status post left foot surgery Social History Smoking/Tobacco Use Status: Never Smoking risk assessment performed?: Yes Alcohol Intake: current Alcohol Intake frequency: a few times a month Drug use: Occasionally Substance use type: marijuana
[2020-08-06] MEDS: diazePAM 2 MG TAB PO (08:22)
--- NOTE | 2020-08-06 11:28 | NUR.NOTE ---
Nursing Note: 08/06/20 11:29 [id number] handoff given to Ute at [facility] at approximately 07:55. This RN provided handoff and answered all questions. Patient is scheduled to transfer at 08:00 with [facility].
== END 2020-08-06 08:31 | disposition short-term general hospital (02) ==
LOC: ER 15:31 → MS 15:32
PROVIDERS: Admitting Provider Family Medicine; Emergency Provider Physician Assistant; PCP Nurse Practitioner Family; Visit Provider Family Medicine
DX: F32.9 Major depressive disorder, single episode, unspecified (principal); R45.851 Suicidal ideations; F41.9 Anxiety disorder, unspecified
CPT/HCPCS: 36415; 80053; 80307; 81025; 87635; 99239; 99285; 80320; 81003; 81015; 84443; 85025; 99217; 99220; 99284; G0378